=== PATIENT | female | born 1970 | race Caucasian/White ===

== ENCOUNTER 2019-08-09 10:32 | Emergency (ER) | payer BC ==
[2019-08-09] MEDS ORDERED: NAPR220C62 PO (10:50)
--- NOTE | 2019-08-09 10:50 | NUR ---
THIS IS A 49 YO FEMALE COMING IN FOR AN ABCESS ON THE RIGHT MIDDLE BACK. PATIENT WAS AT URGENT CARE 2 WEEKS AGO, SENT HOME ON ABX THAT DID NOT WORK. PT WENT BACK 1 WEEK AGO AND WAS SENT HOME WITH DIFFERENT ABX TX. PATIENT STATES THAT URGENT CARE SAID SHE NEEDS TO COME TO ER TO GET IT DRAINED. PATIENT RESTING ON GURNEY, VS REPEAT Q1HR. PATIENT DENIES NEEDS AT THIS TIME.
[2019-08-09] MEDS ORDERED: LIDOCAINE-MPF 1%, 5ML ONE (11:15)
[2019-08-09] MEDS ORDERED: LIDOCAINE-MPF 1%, 5ML INFIL ONE (11:30)
[2019-08-09 11:53] VITALS: BP 151/97
== END 2019-08-09 11:57 | disposition home or self-care (01) ==
LOC: ED 11:30
DX: L03.312 Cellulitis of back [any part except buttock and flank] (principal)
CPT/HCPCS: 99283